=== PATIENT | female | born 1970 | race Hispanic/Latino ===

== ENCOUNTER → 2025-05-22 | Outpatient (CLI) | payer OTHER ==
--- NOTE | 2025-05-23 07:55 | HMCIMG ---
EXAMINATION: COMPLETE TRANSABDOMINAL ULTRASOUND OF PELVIS. CLINICAL HISTORY: Periumbilical pain. COMPARISON: None provided. TECHNIQUE: Multiple real-time grayscale images of the pelvis were obtained. FINDINGS: The uterus is not visualized, post hysterectomy status. The right ovary is normal in caliber and measures 1.6 x 0.6 x 1.4 cm. The left ovary is not visualized, post operative status/obscured by overlying bowel gas. There is no free fluid in the pelvis. IMPRESSION: Post hysterectomy status. Unremarkable right ovary. Left ovary not visualized. /[place]
--- NOTE | 2025-05-23 08:23 | HMCIMG ---
EXAMINATION: ULTRASOUND OF THE ABDOMEN WITH COLOR DOPPLER. CLINICAL HISTORY: Periumbilical pain. COMPARISON: None. TECHNIQUE: Real-time grayscale ultrasound images of the abdomen. In addition, color Doppler is medically necessary to perform in order to evaluate vascularity and blood flow. FINDINGS: Liver: Normal in caliber, the right hepatic lobe measures 13.9 cm in the craniocaudal dimension. There is increased echogenicity of the hepatic parenchyma. There is no focal hepatic abnormality or intrahepatic biliary ductal dilatation. There is normal spectral Doppler of the main portal vein. Gallbladder: Post cholecystectomy status. Common bile duct is normal in caliber, measuring 0.3 cm. Spleen is normal in caliber and measures 9.2 x 3.2 x 3.3 cm in craniocaudal, AP and transverse dimensions respectively. No focal lesions. Pancreas: Obscured by overlying bowel gas. The right kidney is smaller in caliber and the left kidney is normal in caliber, the right kidney measures 8.3 x 4.4 x 5.1 cm and the left kidney measures 10.1 x 5.7 x 5.8 cm in craniocaudal, AP, and transverse dimensions respectively. There is normal renal cortical thickness, and cortical echogenicity. There is no renal calculus or hydronephrosis. The proximal and mid aspects of abdominal aorta are normal in caliber measuring 1.4 cm and 1.1 cm in the AP dimension respectively. The distal aorta is obscured by overlying bowel gas. Visualized aspects of the inferior vena cava are unremarkable. IMPRESSION: Hepatic steatosis. Post cholecystectomy status. Relatively small right kidney. /[place]
== END | disposition home or self-care (01) ==
LOC: RAH 08:49
PROVIDERS: ATTEND Family Medicine
DX: K76.0 Fatty (change of) liver, not elsewhere classified (principal); N27.0 Small kidney, unilateral; R10.2 Pelvic and perineal pain; Z90.49 Acquired absence of other specified parts of digestive tract; Z90.710 Acquired absence of both cervix and uterus
CPT/HCPCS: 76700; 76856